=== PATIENT | female | born 1965 | race Caucasian/White ===

== ENCOUNTER → 2018-06-04 | Outpatient (REF) | payer BC | LOC: M LAB REF 06-05 12:55 | DX: S81.802A Unspecified open wound, left lower leg, initial encounter (principal); W18.30XA Fall on same level, unspecified, initial encounter; Y92.009 Unspecified place in unspecified non-institutional (private) residence as the place of occurrence of the external cause | CPT/HCPCS: 87077 ==

== ENCOUNTER → 2018-10-14 | Outpatient (CLI) | payer BC ==
--- NOTE | 2018-10-17 13:09 | SLEEPCENT ---
DATE OF PROCEDURE: 10/14/2018 ORDERED BY: Lori Cole Nocturnal polysomnography was performed for evaluation of sleep physiology in this patient with a history of excessive somnolence, nonrestorative sleep and comorbidities of hypertension. 8 hours and 9 minutes of data were reviewed. There were 366 minutes of sleep identified. Sleep latency was prolonged at 84 minutes. Rapid eye movement (REM) latency was prolonged at 210 minutes. Sleep architecture showed poor progression early in the study. Some fragmentation was seen. Overall sleep efficiency was 75.6%. The electrocardiogram showed a sinus rhythm with PVCs. Average heart rate was 68 beats per minute. Electroencephalogram (EEG) showed normal waveforms for awake and sleep. Some coarsening in background and alpha intrusion into non REM stages. There were 82 respiratory events identified of 10 seconds in duration or greater for an apnea-hypopnea index of 13.4. The events were obstructive, more common in stage REM, but not exclusive to sleep position. Snoring was noted as well. Respiratory related arousals occurred 2.8 times per hour and oxygen desaturations were seen into the 80s and oxygen desaturation index of 2.1. There was little limb activity and remaining measures of sleep physiology were normal. IMPRESSION: Obstructive sleep apnea syndrome (G47.33), apnea-hypopnea index 13.4. RECOMMENDATION: The patient should be encouraged to return to the sleep disorder center for pressure therapy In the interim, alcohol and sedative avoidance should be practiced and caution exercised during operation of motor vehicles.
== END ==
LOC: M SLEEP 19:33
PROVIDERS: ATTEND Nurse Practitioner Family
DX: G47.33 Obstructive sleep apnea (adult) (pediatric) (principal)

== ENCOUNTER → 2018-11-26 | Outpatient (CLI) | payer BC ==
--- NOTE | 2018-11-30 12:33 | SLEEPCENT ---
DATE OF STUDY: 11/26/2018 ORDERED BY: Lori Cole Nocturnal polysomnography was performed for the titration of pressure therapy in this patient with obstructive sleep apnea syndrome, apnea-hypopnea index 13.4. For testing, a ResMed Mirage FX nasal mask of standard size was used, 4 cm of water pressure were applied to the circuit, and the lights were extinguished. 7 hours and 13 minutes of data were reviewed. There were 398 minutes of sleep identified. Sleep latency was normal at 11 minutes. REM latency was mildly prolonged at 104 minutes. Sleep architecture was good with four REM cycles. Overall sleep efficiency was 93%. The patient's electrocardiogram showed sinus rhythm with an average heart rate of 68 beats per minute. EEG showed normal waveforms for awake and sleep. Respiratory events were fully palliated with continuous positive airway pressure (CPAP) at a pressure of +5, and remaining measures of sleep physiology were normal. IMPRESSION: Obstructive sleep apnea syndrome (G47.33). RECOMMENDATION: Nightly use of pressure therapy 5 cm of water.
== END ==
LOC: M SLEEP 19:28
PROVIDERS: ATTEND Nurse Practitioner Family
DX: G47.33 Obstructive sleep apnea (adult) (pediatric) (principal)

== ENCOUNTER → 2019-07-11 | Outpatient (REF) | payer BC | LOC: M LAB REF 18:33 | PROVIDERS: ATTEND Nurse Practitioner Family | DX: L04.0 Acute lymphadenitis of face, head and neck (principal) ==

== ENCOUNTER → 2019-07-28 | Outpatient (REF) | payer BC | LOC: M LAB REF 11:43 | PROVIDERS: ATTEND Otolaryngology | DX: L02.01 Cutaneous abscess of face (principal) ==

== ENCOUNTER → 2021-01-14 | Outpatient (CLI) | payer BC ==
--- NOTE | 2021-01-14 14:10 | REP ---
INDICATION: THYROID NODULE. COMPARISON: 07/25/2019 TECHNIQUE: Today's exam performed in the same fashion as the prior exam FINDINGS: The thyroid gland is essentially unchanged in size, shape, and echo pattern. The right lobe measures 4.1 x 1.7 x 1.6 cm and the left lobe measures 3.3 x 1.1 x 1 cm. The isthmus measures 4 mm. Once again, there is a 5 mm sized slightly mixed echo structure in the left lobe. IMPRESSION: No significant change <Electronically signed by Noman Eagle > 01/14/21 [id number]
== END ==
LOC: M RAD 10:54
PROVIDERS: ATTEND Physician Assistant Medical
DX: E04.1 Nontoxic single thyroid nodule (principal)

== ENCOUNTER → 2022-10-27 | Outpatient (CLI) | payer BC | LOC: M WHC 08:23 | PROVIDERS: ATTEND Physician Assistant Medical | DX: K76.0 Fatty (change of) liver, not elsewhere classified (principal); R74.01 Elevation of levels of liver transaminase levels ==

== ENCOUNTER → 2023-01-26 | Outpatient (REF) | payer BC | LOC: M LAB REF 16:13 | PROVIDERS: ATTEND Physician Assistant | DX: B34.9 Viral infection, unspecified (principal) ==

== ENCOUNTER → 2023-06-28 | Outpatient (CLI) | payer BC ==
[2023-06-28 19:26] LABS: ALBUMIN 3.6 G/DL (3.2-5.2); ALKALINE PHOSPHATASE 169 U/L (46-116); ALT/SGPT 27 U/L (7.0-40); AST/SGOT 35 U/L (<34); BILIRUBIN,TOTAL 0.7 MG/DL (0.3-1.2); BLOOD UREA NITROGEN 7 MG/DL (9-23); CARBON DIOXIDE LEVEL 26 MMOL/L (20-31); CHLORIDE LEVEL 101 MMOL/L (98-107); CHOLESTEROL LEVEL 223 MG/DL (<200); CHOLESTEROL RISK RATIO 4.05 (<5); CREATININE FOR GFR 0.58 MG/DL (0.55-1.30); GLOMERULAR FILTRATION RATE > 60.0 (>51); GLUCOSE, FASTING 85 MG/DL (60-100); LDL CHOLESTEROL 122.4 MG/DL (<100); POTASSIUM SERUM 4.8 MMOL/L (3.5-5.1); SODIUM LEVEL 135 MMOL/L (136-145); TOTAL PROTEIN 7.4 G/DL (5.7-8.2); TRIGLYCERIDES LEVEL 228 MG/DL (<150)
[2023-06-28 19:28] LABS: THYROID STIMULATING HORMONE 3.485 uIU/ML (0.55-4.78)
== END ==
LOC: M PLALAB 12:47
PROVIDERS: ATTEND Family Medicine
DX: E03.8 Other specified hypothyroidism (principal); E78.2 Mixed hyperlipidemia; I10 Essential (primary) hypertension

== ENCOUNTER → 2023-07-11 | Outpatient (CLI) | payer BC | LOC: M WHC 14:15 | PROVIDERS: ATTEND Family Medicine | DX: Z12.31 Encounter for screening mammogram for malignant neoplasm of breast (principal) ==

== ENCOUNTER → 2023-07-17 | Outpatient (CLI) | payer BC | LOC: M RAD 16:24 | PROVIDERS: ATTEND Family Medicine | DX: Z87.891 Personal history of nicotine dependence (principal) ==

== ENCOUNTER → 2023-09-19 | Outpatient (CLI) | payer BC | LOC: M PLAIMG 10:02 | PROVIDERS: ATTEND Internal Medicine Hematology | DX: M54.50 Low back pain, unspecified (principal); M47.816 Spondylosis without myelopathy or radiculopathy, lumbar region; M47.817 Spondylosis without myelopathy or radiculopathy, lumbosacral region; M43.16 Spondylolisthesis, lumbar region ==

== ENCOUNTER 2023-10-22 11:29 | Outpatient (RCR) | payer BC | END 2023-11-01 | LOC: M PT 11:29 | PROVIDERS: ATTEND Internal Medicine Pulmonary Disease | DX: M54.50 Low back pain, unspecified (principal) ==

== ENCOUNTER → 2023-11-27 | Outpatient (CLI) | payer BC ==
[2023-11-27 19:14] LABS: ALBUMIN 3.4 G/DL (3.2-5.2); ALKALINE PHOSPHATASE 146 U/L (46-116); ALT/SGPT 30 U/L (7.0-40); AST/SGOT 32 U/L (<34); BILIRUBIN,TOTAL 0.7 MG/DL (0.3-1.2); BLOOD UREA NITROGEN 11 MG/DL (9-23); CALCIUM LEVEL 9.2 MG/DL (8.5-10.1); CARBON DIOXIDE LEVEL 28 MMOL/L (20-31); CHLORIDE LEVEL 107 MMOL/L (98-107); CHOLESTEROL LEVEL 158 MG/DL (<200); CHOLESTEROL RISK RATIO 2.44 (<5); CREATININE FOR GFR 0.79 MG/DL (0.55-1.30); GLOMERULAR FILTRATION RATE > 60.0 (>51); GLUCOSE, FASTING 106 MG/DL (60-100); HDL CHOLESTEROL 64.6 MG/DL (>40); LDL CHOLESTEROL 54.4 MG/DL (<100); NON-HDL-C 93.4 MG/DL; SODIUM LEVEL 137 MMOL/L (136-145); TRIGLYCERIDES LEVEL 195 MG/DL (<150)
[2023-11-27 19:15] LABS: FREE T4 0.89 NG/DL (0.89-1.76); THYROID STIMULATING HORMONE 6.233 uIU/ML (0.55-4.78)
== END ==
LOC: M PLALAB 15:29
PROVIDERS: ATTEND Family Medicine
DX: E78.2 Mixed hyperlipidemia (principal); Z12.4 Encounter for screening for malignant neoplasm of cervix
CPT/HCPCS: 36415; 80053; 80061; 84439; 84443; 87624; G0123

== ENCOUNTER → 2025-03-31 | Outpatient (CLI) | payer BC ==
[2025-03-31 17:12] LABS: PLATELET COUNT, AUTOMATED 302 10^3/uL (150-450)
[2025-03-31 17:32] LABS: CREATININE, URINE 103.0 MG/DL; MALB URINE SIEMENS 27.0 MG/L; MAU/CREAT RATIO 26.2 MCG/MG (0.0-30.0)
[2025-03-31 17:34] LABS: ALT/SGPT 50.0 U/L (7.0-40); AST/SGOT 41.0 U/L (<34); CALCIUM LEVEL 9.0 MG/DL (8.5-10.1); CARBON DIOXIDE LEVEL 25.0 MMOL/L (20-31); CHLORIDE LEVEL 107.0 MMOL/L (98-107); CREATININE FOR GFR 0.95 MG/DL (0.55-1.30); GLOMERULAR FILTRATION RATE 69.5 (>51); POTASSIUM SERUM 4.3 MMOL/L (3.5-5.1); SODIUM LEVEL 143.0 MMOL/L (136-145)
[2025-03-31 17:37] LABS: FREE T4 0.96 NG/DL (0.89-1.76)
== END ==
LOC: M PLAIMG 15:37
PROVIDERS: ATTEND Family Medicine
DX: I10 Essential (primary) hypertension (principal); F10.90 Alcohol use, unspecified, uncomplicated; Z12.11 Encounter for screening for malignant neoplasm of colon; E03.8 Other specified hypothyroidism

== ENCOUNTER → 2025-04-20 | Outpatient (CLI) | payer BC | LOC: M WHC 07:57 | PROVIDERS: ATTEND Family Medicine | DX: Z12.31 Encounter for screening mammogram for malignant neoplasm of breast (principal); Z53.9 Procedure and treatment not carried out, unspecified reason ==

== ENCOUNTER → 2025-04-21 | Outpatient (CLI) | payer BC | LOC: M RAD 16:46 | PROVIDERS: ATTEND Family Medicine | DX: Z12.2 Encounter for screening for malignant neoplasm of respiratory organs (principal); F17.210 Nicotine dependence, cigarettes, uncomplicated; I70.0 Atherosclerosis of aorta; I25.10 Atherosclerotic heart disease of native coronary artery without angina pectoris; R91.8 Other nonspecific abnormal finding of lung field ==

== ENCOUNTER → 2025-05-06 | Outpatient (CLI) | payer BC | LOC: M WHC 15:48 | PROVIDERS: ATTEND Family Medicine | DX: Z12.31 Encounter for screening mammogram for malignant neoplasm of breast (principal); R92.313 Mammographic fatty tissue density, bilateral breasts ==

== ENCOUNTER → 2025-05-14 | Outpatient (CLI) | payer BC | LOC: M RAD 13:49 | PROVIDERS: ATTEND Family Medicine | DX: M79.89 Other specified soft tissue disorders (principal) ==